=== PATIENT | female | born 1980 | race Caucasian/White ===

== ENCOUNTER 2024-08-17 09:27 | Emergency (ER) | payer OTHER ==
[~2024-08-17] VITALS: Ht 167.6 cm; Wt 58.0 kg
[2024-08-17 09:29] VITALS: BP 140/72; TEMP 97.4; O2SAT 100
== END 2024-08-17 10:23 | disposition home or self-care (01) ==
LOC: M ED 09:27
DX: H65.02 Acute serous otitis media, left ear (principal); Z88.0 Allergy status to penicillin; Z91.040 Latex allergy status

== ENCOUNTER 2024-08-28 10:15 | Emergency (ER) | payer BC, OTHER ==
[~2024-08-28] VITALS: Ht 167.6 cm; Wt 55.8 kg
[2024-08-28 11:57] LABS: Trichomonas vaginalis (AMP) POSITIVE (NEGATIVE)
[2024-08-28 12:29] LABS: GC DNA AMPLIFICATION NEGATIVE (NEGATIVE)
[2024-08-28] MEDS: metroNIDAZOLE (FLAGYL) 500MG TABLET PO ONE (12:41)
[2024-08-28] MEDS: DOXYCYCLINE HYCLATE 100MG TABLET PO ONE (12:42)
[2024-08-28] MEDS ORDERED: METR-265 PO (12:52)
[2024-08-28] MEDS ORDERED: DOXY100T PO (12:52)
[2024-08-28] MEDS: LIDOCAINE 1% SDV 5ML VIAL DILUENT ONE (13:00)
[2024-08-28] MEDS: cefTRIAXone SOD 1GM VIAL IM ONE (13:00)
[2024-08-28 13:06] VITALS: BP 153/71; TEMP 98.1; O2SAT 100
== END 2024-08-28 13:31 | disposition home or self-care (01) ==
LOC: M ED 10:15
DX: A59.9 Trichomoniasis, unspecified (principal); Z88.0 Allergy status to penicillin; Z88.2 Allergy status to sulfonamides; Z91.040 Latex allergy status
CPT/HCPCS: 81001; 87086; 87210; 87661; 87810; 87850; 96372; 99283; J0696

== ENCOUNTER 2024-09-28 21:33 | Emergency (ER) | payer BC ==
[~2024-09-28] VITALS: Ht 167.6 cm; Wt 55.6 kg
[~2024-09-28 21:33] MED LIST: DOXY100T PO; METR-265 PO
[2024-09-29 01:56] VITALS: BP 119/59; TEMP 98.5; O2SAT 100
== END 2024-09-29 03:25 | disposition left against medical advice (07) ==
LOC: M ED 21:33
DX: Z53.21 Procedure and treatment not carried out due to patient leaving prior to being seen by health care provider (principal)